=== PATIENT | male | born 1940 | race Caucasian/White ===

== ENCOUNTER → 2017-12-04 | Outpatient (CLI) | payer BC ==
[~2017-12-04] MED LIST: NAPR1TAB9 PO; OFLO0.3S OPR; OXYC-90 PO; TAMS0.4C38 PO
--- NOTE | 2017-12-04 12:27 | DIAGNOSTIC IMAGING REPORT ---
ABDOMEN 2VIEW W/PA CHEST RTN CLINICAL HISTORY: Right-sided abdominal pain of 3 days' duration COMPARISON STUDY: No previous studies for comparison. FINDINGS: The heart is enlarged. There is interstitial thickening. There is no lobar consolidation. There is no free intraperitoneal air. Erect and supine views the abdomen reveal mildly dilated small bowel loops with scattered air-fluid levels. There is however gas present within the colon. The findings could represent an ileus or early/partial small bowel obstruction. Clinical and radiographic follow-up is recommended. IMPRESSION: 1. Mildly dilated small bowel loops with scattered air-fluid levels. The findings could be secondary to either an ileus, or early/partial small bowel obstruction. Clinical and radiographic follow-up will be necessary. 2. Cardiomegaly and interstitial thickening Electronically signed by: Levon Alexis M.D. 12/04/2017 12:26 PM Dictated Date/Time: 12/04/2017 12:23 PM
== END | disposition home or self-care (01) ==
LOC: C.RADPV 11:37
PROVIDERS: ATTEND Family Medicine
DX: R93.3 Abnormal findings on diagnostic imaging of other parts of digestive tract (principal); R10.9 Unspecified abdominal pain

== ENCOUNTER 2017-12-06 15:01 | Emergency (ER) | payer BC ==
[~2017-12-06] VITALS: Ht 165.1 cm; Wt 98.0 kg
[~2017-12-06 15:01] MED LIST changes: -OXYC-90 PO; -TAMS0.4C38 PO
[2017-12-06 15:19] VITALS: TEMP 36.5; Ht 165.1 cm; Wt 98.0 kg
[2017-12-06] MEDS ORDERED: KETOROLAC TROMETHAMINE 30 MG/ML VIAL IV STA (16:49)
--- NOTE | 2017-12-06 17:02 | DIAGNOSTIC IMAGING REPORT ---
CHEST ONE VIEW PORTABLE CLINICAL HISTORY: Left flank pain and hematuria COMPARISON STUDY: December 04, 2017 FINDINGS: The heart remains enlarged. There are calcified mediastinal and hilar lymph nodes. There is no focal pulmonary consolidation. There is no overt failure. There are no pleural effusions. There is minor interstitial thickening. No free intraperitoneal air is visualized.[ IMPRESSION: Cardiomegaly and mild stable interstitial thickening. No evidence of focal pulmonary consolidation. No evidence of free intraperitoneal air. Electronically signed by: Levon Alexis M.D. 12/06/2017 5:01 PM Dictated Date/Time: 12/06/2017 5:00 PM
[2017-12-06 17:57] LABS: BASO % 0.2 %; BASO ABS # 0.02 K/uL (0-0.2); EOS % 0.4 %; EOS ABS # 0.05 K/uL (0-0.5); HEMATOCRIT 46.1 % (42-52); HEMOGLOBIN 16.6 g/dL (14.0-18.0); IG# 0.03 K/uL (0.00-0.02); LYMPH % 11.5 %; LYMPH ABS # 1.29 K/uL (1.2-3.4); MEAN CELL VOLUME 90.7 fL (80-100); MEAN CORPUSCULAR HEMOGLOBIN 32.7 pg (25-34); MONO % 12.3 %; MONO ABS # 1.38 K/uL (0.11-0.59); NEUT % 75.3 %; NEUT ABS # 8.43 K/uL (1.4-6.5); PLATELET COUNT 165 K/uL (130-400); RED CELL DISTRIBUTION WIDTH CV 12.9 % (11.5-14.5); RED CELL DISTRIBUTION WIDTH SD 42.8 fL (36.4-46.3)
[2017-12-06 18:20] LABS: ALBUMIN 3.9 gm/dl (3.4-5.0); CALCIUM 8.8 mg/dl (8.5-10.1); CREATININE 1.7 mg/dl (0.60-1.40); POTASSIUM 4.3 mmol/L (3.5-5.1); TOTAL PROTEIN 8.3 gm/dl (6.4-8.2)
--- NOTE | 2017-12-06 18:43 | DIAGNOSTIC IMAGING REPORT ---
ABD/PELVIS WITHOUT FOR STONE HISTORY: 77 years-old Male EVALUATE FLANK PAIN/HEMATURIA acute right-sided flank pain with hematuria. COMPARISON: Acute abdominal series radiographs 12/04/2017 TECHNIQUE: Multiple axial CT images of the abdomen and pelvis were obtained without use of IV contrast. A dose lowering technique was used consistent with the principals of ALARA. FINDINGS: Evaluation of the lung bases is limited secondary to respiratory motion. Bilateral linear subsegmental opacities about the right middle lobe. There is suggested mucous plugging about the lateral basal segment left lower lobe with minimal subsegmental pleural parenchymal scarring and scattered calcified granulomata. No pneumatosis or pneumoperitoneum. Imaged inferior cardiac chambers are enlarged with coronary arterial calcifications noted. Calcified lymph nodes about the left hilum and periesophageal distribution. The liver, spleen, gallbladder, pancreas and right adrenal gland are unremarkable. Mild thickening about the left adrenal gland. There are two 3 mm nonobstructing calculi about the left kidney. There are at least two nonobstructing calculi about the right kidney measuring up to 3 mm. Indeterminate 9 mm hypodense lesion about the anterior interpolar left kidney, possibly reflecting a renal cyst. There is mild to moderate right-sided hydroureteronephrosis with reactive right perinephric and periureteral inflammatory stranding secondary to a 6 x 5 x 5 mm calculus of the mid right ureter seen at the level of the superior endplate L5. Prostate is mildly prominent. Urinary bladder is partially collapsed. Moderate calcification of the aorta without aneurysm. No pathologically enlarged lymph nodes identified. No bowel obstruction or focal bowel wall thickening identified. Terminal ileum is unremarkable. The appendix is air-filled and appears noninflamed. Tiny fat filled periumbilical hernia, diastases 1.1 cm. Bones appear intact. Multilevel facet arthropathy. Mild osteoarthritis of the bilateral hips. Severe intervertebral disc space narrowing with posterior disc osteophyte complex formation at L5-S1. IMPRESSION: 1. Mild to moderate right-sided hydroureteronephrosis secondary to a 6 x 5 x 5 mm calculus of the mid right ureter at the level of the superior endplate L5. 2. Additional bilateral nonobstructing nephrolithiasis. 3. No bowel obstruction or focal bowel wall thickening. 4. Suggested mucous plugging about the lateral basal segment left lower lobe, partially imaged. This could be evaluated with a nonemergent outpatient follow-up CT of the chest further characterize. 5. Prior granulomatous disease. The above report was generated using voice recognition software. It may contain grammatical, syntax or spelling errors. Electronically signed by: Hudson Mcgill M.D. 12/06/2017 6:41 PM Dictated Date/Time: 12/06/2017 6:34 PM
[2017-12-06] MEDS ORDERED: OXYCODONE IR HOME PACK PO ONE (19:00)
[2017-12-06] MEDS ORDERED: TAMSULOSIN HCL 0.4 MG CAP PO ONE (19:00)
[2017-12-06] MEDS ORDERED: OXYC-90 PO (19:02)
[2017-12-06] MEDS ORDERED: TAMS0.4C38 PO (19:02)
[2017-12-06 19:22] VITALS: BP 137/77; PULSE 72; O2SAT 97
--- NOTE | 2017-12-06 19:32 | EMERGENCY ROOM VISIT NOTE ---
History Report prepared by Gee: Blake Moses Under the Supervision of: Dr. Chaim Britt M.D. First contact with patient: 16:43 Chief Complaint: FLANK PAIN Stated Complaint: RIGHT-SIDED PAIN History of Present Illness The patient is a 77 year old male who presents to the Emergency Room with complaints of right-sided pain from his abdomen radiating to his back beginning 5 days ago. The patient denies pain in the testicles, fevers, or urinary symptoms. He states that the pain often wakes him up in the middle of the night , and notes that he has trouble sleeping. He states that he vomited 5 days ago. He notes he had a bad cough earlier this week. He denies a history of kidney stones. He notes that a family member had a kidney stone once. He reports that his pain is not worsened with eating and notes that he still has his gallbladder. He does not believe he has any pinched nerves that would be causing his symptoms. He notes that he has not taken anything for pain except for Zantac, which caused no improvement. He states that he does not take regular medications. The patient had a urine test earlier this week that was negative for infection. Source of History: patient Onset: 5 days ago Position: abdomen (right), back (right) Modifying Factors (Worsening): other (not worsened with eating) Modifying Factors (Relieving): other (no improvement with Zantac) Associated Symptoms: + cough Note: difficulty sleeping Review of Systems See HPI for pertinent positives & negatives. A total of 10 systems reviewed and were otherwise negative. Past Medical & Surgical Medical Problems: (1) No significant past medical history Family History Patient reports no known family medical history. Social History Smoking Status: Former Smoker Housing Status: lives with family Occupation Status: employed Current/Historical Medications Scheduled Tamsulosin Hcl (Flomax), 0.4 MG PO DAILY Scheduled PRN Oxycodone Ir (Roxicodone Ir), 1 TAB PO Q4H PRN for Pain Allergies Coded Allergies: No Known Allergies (Unverified , 12/06/17) Physical Exam Vital Signs Date Time Temp Pulse Resp B/P (MAP) Pulse Ox O2 Delivery O2 Flow Rate FiO2 12/06/17 19:22 72 18 137/77 97 12/06/17 18:00 67 132/73 95 Room Air 12/06/17 17:36 67 16 186/88 97 Room Air 12/06/17 15:19 36.5 100 18 158/94 95 Room Air Physical Exam GENERAL: Patient is in no acute distress. HEENT: No acute trauma, normocephalic atraumatic, mucous membranes moist, no nasal congestion, no scleral icterus. NECK: No stridor, no adenopathy, no meningismus, trachea is midline. LUNGS: Clear to auscultation bilaterally, no wheeze, no rhonchi, breath sounds equal. HEART: Without murmurs gallops or rubs, regular rate and rhythm. ABDOMEN: Soft, mildly tender in right upper quadrant, bowel sounds positive, no hernias, no peritonitis. EXTREMITIES: No cyanosis or edema, full range of motion of all the joints without pain or difficulty, no signs for acute trauma. BACK: No flank discomfort with percussion, no rash noted, tender over right lumbar muscles. NEUROLOGIC: Oriented x 3, no acute motor or sensory deficits, no focal weakness. SKIN: No rash, no jaundice, no diaphoresis. Medical Decision & Procedures ER Provider Diagnostic Interpretation: Radiology results as stated below per my review and radiologist interpretation: ABD/PELVIS WITHOUT FOR STONE HISTORY: 77 years-old Male EVALUATE FLANK PAIN/HEMATURIA acute right-sided flank pain with hematuria. COMPARISON: Acute abdominal series radiographs 12/04/2017 TECHNIQUE: Multiple axial CT images of the abdomen and pelvis were obtained without use of IV contrast. A dose lowering technique was used consistent with the principals of ALARA. FINDINGS: Evaluation of the lung bases is limited secondary to respiratory motion. Bilateral linear subsegmental opacities about the right middle lobe. There is suggested mucous plugging about the lateral basal segment left lower lobe with minimal subsegmental pleural parenchymal scarring and scattered calcified granulomata. No pneumatosis or pneumoperitoneum. Imaged inferior cardiac chambers are enlarged with coronary arterial calcifications noted. Calcified lymph nodes about the left hilum and periesophageal distribution. The liver, spleen, gallbladder, pancreas and right adrenal gland are unremarkable. Mild thickening about the left adrenal gland. There are two 3 mm nonobstructing calculi about the left kidney. There are at least two nonobstructing calculi about the right kidney measuring up to 3 mm. Indeterminate 9 mm hypodense lesion about the anterior interpolar left kidney, possibly reflecting a renal cyst. There is mild to moderate right-sided hydroureteronephrosis with reactive right perinephric and periureteral inflammatory stranding secondary to a 6 x 5 x 5 mm calculus of the mid right ureter seen at the level of the superior endplate L5. Prostate is mildly prominent. Urinary bladder is partially collapsed. Moderate calcification of the aorta without aneurysm. No pathologically enlarged lymph nodes identified. No bowel obstruction or focal bowel wall thickening identified. Terminal ileum is unremarkable. The appendix is air-filled and appears noninflamed. Tiny fat filled periumbilical hernia, diastases 1.1 cm. Bones appear intact. Multilevel facet arthropathy. Mild osteoarthritis of the bilateral hips. Severe intervertebral disc space narrowing with posterior disc osteophyte complex formation at L5-S1. IMPRESSION: 1. Mild to moderate right-sided hydroureteronephrosis secondary to a 6 x 5 x 5 mm calculus of the mid right ureter at the level of the superior endplate L5. 2. Additional bilateral nonobstructing nephrolithiasis. 3. No bowel obstruction or focal bowel wall thickening. 4. Suggested mucous plugging about the lateral basal segment left lower lobe, partially imaged. This could be evaluated with a nonemergent outpatient follow-up CT of the chest further characterize. 5. Prior granulomatous disease. The above report was generated using voice recognition software. It may contain grammatical, syntax or spelling errors. Electronically signed by: Hudson Mcgill M.D. 12/06/2017 6:41 PM Dictated Date/Time: 12/06/2017 6:34 PM CHEST ONE VIEW PORTABLE CLINICAL HISTORY: Left flank pain and hematuria COMPARISON STUDY: December 04, 2017 FINDINGS: The heart remains enlarged. There are calcified mediastinal and hilar lymph nodes. There is no focal pulmonary consolidation. There is no overt failure. There are no pleural effusions. There is minor interstitial thickening. No free intraperitoneal air is visualized.[ IMPRESSION: Cardiomegaly and mild stable interstitial thickening. No evidence of focal pulmonary consolidation. No evidence of free intraperitoneal air. Electronically signed by: Levon Alexis M.D. 12/06/2017 5:01 PM Dictated Date/Time: 12/06/2017 5:00 PM Laboratory Results 12/06/17 17:30 Red Blood Count 5.08, Mean Corpuscular Volume 90.7, Mean Corpuscular Hemoglobin 32.7, Mean Corpuscular Hemoglobin Concent 36.0, Mean Platelet Volume 9.0, Neutrophils (%) (Auto) 75.3, Lymphocytes (%) (Auto) 11.5, Monocytes (%) (Auto) 12.3, Eosinophils (%) (Auto) 0.4, Basophils (%) (Auto) 0.2, Neutrophils # (Auto ) 8.43, Lymphocytes # (Auto) 1.29, Monocytes # (Auto) 1.38, Eosinophils # (Auto ) 0.05, Basophils # (Auto) 0.02 12/06/17 17:30 Test 12/06/17 17:30 White Blood Count 11.20 K/uL (4.8-10.8) Red Blood Count 5.08 M/uL (4.7-6.1) Hemoglobin 16.6 g/dL (14.0-18.0) Hematocrit 46.1 % (42-52) Mean Corpuscular Volume 90.7 fL (80-100) Mean Corpuscular Hemoglobin 32.7 pg (25-34) Mean Corpuscular Hemoglobin Concent 36.0 g/dl (32-36) Platelet Count 165 K/uL (130-400) Mean Platelet Volume 9.0 fL (7.4-10.4) Neutrophils (%) (Auto) 75.3 % Lymphocytes (%) (Auto) 11.5 % Monocytes (%) (Auto) 12.3 % Eosinophils (%) (Auto) 0.4 % Basophils (%) (Auto) 0.2 % Neutrophils # (Auto) 8.43 K/uL (1.4-6.5) Lymphocytes # (Auto) 1.29 K/uL (1.2-3.4) Monocytes # (Auto) 1.38 K/uL (0.11-0.59) Eosinophils # (Auto) 0.05 K/uL (0-0.5) Basophils # (Auto) 0.02 K/uL (0-0.2) RDW Standard Deviation 42.8 fL (36.4-46.3) RDW Coefficient of Variation 12.9 % (11.5-14.5) Immature Granulocyte % (Auto) 0.3 % Immature Granulocyte # (Auto) 0.03 K/uL (0.00-0.02) Urine Color DK YELLOW Urine Appearance CLEAR (CLEAR) Urine pH 5.0 (4.5-7.5) Urine Specific Lane 1.025 (1.000-1.030) Urine Protein TRACE (NEG) Urine Glucose (UA) NEG (NEG) Urine Ketones 1+ (NEG) Urine Occult Blood 1+ (NEG) Urine Nitrite NEG (NEG) Urine Bilirubin NEG (NEG) Urine Urobilinogen NEG (NEG) Urine Leukocyte Esterase NEG (NEG) Urine WBC (Auto) 1-5 /hpf (0-5) Urine RBC (Auto) 0-4 /hpf (0-4) Urine Hyaline Casts (Auto) 0 /lpf (0-5) Urine Epithelial Cells (Auto) 0-5 /lpf (0-5) Urine Bacteria (Auto) NEG (NEG) Anion Gap 9.0 mmol/L (3-11) Est Creatinine Clear Calc Drug Dose 40.4 ml/min Estimated GFR () 44.7 Estimated GFR (Non- 38.6 BUN/Creatinine Ratio 14.5 (10-20) Calcium Level 8.8 mg/dl (8.5-10.1) Total Bilirubin 1.5 mg/dl (0.2-1) Aspartate Amino Transf (AST/SGOT) 18 U/L (15-37) Alanine Aminotransferase (ALT/SGPT) 20 U/L (12-78) Alkaline Phosphatase 69 U/L (45-117) Total Protein 8.3 gm/dl (6.4-8.2) Albumin 3.9 gm/dl (3.4-5.0) Globulin 4.4 gm/dl (2.5-4.0) Albumin/Globulin Ratio 0.9 (0.9-2) Lipase 147 U/L (73-393) Laboratory results reviewed by me. Medications Administered Medications (Trade) Dose Ordered Sig/Nohemi Route Start Time Stop Time Status Last Admin Dose Admin Ketorolac Tromethamine (Toradol Inj) 15 mg NOW STAT IV 12/06/17 16:49 12/06/17 16:51 DC 12/06/17 17:33 15 MG Tamsulosin HCl (Flomax Cap) 0.4 mg NOW ONCE PO 12/06/17 19:00 12/06/17 19:01 DC 12/06/17 19:14 0.4 MG Oxycodone HCl (Roxicodone Immediate Rel 5MG Home Pack) 1 homepack UD ONCE PO 12/06/17 19:00 12/06/17 19:01 DC 12/06/17 19:14 1 HOMEPACK ED Course 164: The patient was evaluated in room B11B. A complete history and physical exam was performed. 1648: Ordered Toradol 15 mg IV 1852: I updated the patient on his results. 1856: I discussed the patient's case with urology. They have no present concerns for the patient. 1899: Ordered Oxycodone HCl 1 homepack PO, Flomax 0.4 mg PO 1904: Reevaluated the patient. Discussed results and discharge instructions: he verbalized understanding and agreement. The patient is ready for discharge. Medical Decision Differential diagnosis: musculoskeletal pain, pneumonia, biliary colic, renal colic, UTI, hernia, diverticulitis or appendicitis There is a mild leukocytosis, this could be consistent with infection or just the stress of his situation. No concerning anemia. Renal panel testing shows some dehydration and/or mild renal insufficiency with a creatinine of 1.7. There was no hepatitis or pancreatitis. Chest film does not show obvious pneumonia, there was no free air. Abdominal and pelvis CT shows a 6 mm right mid ureteral stone with hydronephrosis. Urinalysis shows some trace blood, no infection. On exam, the patient was not toxic or febrile. Patient received IV Toradol, this is all he required for pain control. He was given oral Flomax and a urine strainer. I discussed the case with urology, the patient is safe for discharge with outpatient follow-up. He is being discharged on Flomax, oxycodone. He will stay hydrated. He will strain all his urine. He will see urology next week and has agreed to return here for fever, vomiting or uncontrolled pain. [place] Drug Monitoring Program Search Results: no issues identified Medication Reconcilliation Current Medication List: was personally reviewed by me Blood Pressure Screening Patient's blood pressure: Elevated blood pressure Blood pressure disposition: Elevated BP felt to be situational Consults Time Called: 1853 Consulting Physician: urology Returned Call: [phone] I discussed the patient's case with urology. They have no present concerns for the patient. Impression Primary Impression: Renal colic Additional Impressions: Hydronephrosis Right flank pain Scribe Attestation The scribe's documentation has been prepared under my direction and personally reviewed by me in its entirety. I confirm that the note above accurately reflects all work, treatment, procedures, and medical decision making performed by me. Departure Information Dispostion Home / Self-Care Prescriptions Tamsulosin Hcl (FLOMAX) 0.4 Mg Cap 0.4 MG PO DAILY, #10 CAP Prov: Chaim Britt M.D. 12/06/17 Oxycodone Ir (Roxicodone Ir) 5 Mg Tab 1 TAB PO Q4H Y for Pain, #10 TAB Prov: Chaim Britt M.D. 12/06/17 Referrals Jerrell Huston M.D. (PCP) Forms HOME CARE DOCUMENTATION FORM, IMPORTANT VISIT INFORMATION Patient Instructions My [facility] Additional Instructions strain all the urine for the stone stay well hydrated may use tylenol or motrin for pain may use oxy ir 1-2 tab every 4 hours for severe pain use flomax daily to help the stone pass return for fever, vomiting or uncontrolled pain see urology next week Problem Qualifiers
== END 2017-12-06 19:26 | disposition home or self-care (01) ==
LOC: C.EDB 15:02
DX: N13.2 Hydronephrosis with renal and ureteral calculous obstruction (principal); Z87.891 Personal history of nicotine dependence; Z79.899 Other long term (current) drug therapy